=== PATIENT | female | born 2000 | race Caucasian/White ===

== ENCOUNTER 2025-03-07 03:56 | Emergency (ER) | payer SELFPAY ==
[~2025-03-07] VITALS: Ht 167.6 cm; Wt 68.0 kg
[2025-03-07 03:59] VITALS: O2SAT 99
[2025-03-07] MEDS: ACETAMINOPHEN 325MG TABLET PO ONE (06:26)
[2025-03-07] MEDS: BACITRACIN ZINC OINT UDPKT TOP ONE (06:27)
[2025-03-07] MEDS ORDERED: TOPUD PO (09:19)
[2025-03-07 10:08] VITALS: BP 100/73; PULSE 74; RESP 16; TEMP 36.4; O2SAT 100
== END 2025-03-07 10:28 | disposition home or self-care (01) ==
LOC: ER 03:56
DX: S00.91XA Abrasion of unspecified part of head, initial encounter (principal); R51.9 Headache, unspecified; X58.XXXA Exposure to other specified factors, initial encounter; Y93.89 Activity, other specified; Y92.89 Other specified places as the place of occurrence of the external cause; Y99.8 Other external cause status
CPT/HCPCS: 99284